=== PATIENT | male | born 1985 | race African-American/Black ===

== ENCOUNTER 2022-06-20 06:54 | Emergency (ER) | payer OTHER ==
[~2022-06-20] VITALS: Ht 193 cm; Wt 86.4 kg
[2022-06-20] MEDS ORDERED: CLIN300C58 PO (08:13)
[2022-06-20] MEDS ORDERED: TRAM-559 PO (08:13)
[2022-06-20 08:28] VITALS: BP 125/77
== END 2022-06-20 08:31 | disposition home or self-care (01) ==
LOC: EMS 06:55
DX: K02.9 Dental caries, unspecified (principal); K04.7 Periapical abscess without sinus; Z88.0 Allergy status to penicillin
CPT/HCPCS: 99283